=== PATIENT | female | born 1965 | race Caucasian/White ===

== ENCOUNTER 2022-12-31 11:06 | Emergency (ER) | payer OTHER, SELFPAY ==
--- NOTE | 2022-12-31 11:08 | XRR_ITS ---
PROCEDURE INFORMATION: Exam: XR Right Shoulder Exam date and time: 12/31/2022 11:27 AM Age: 57 years old Clinical indication: Injury or trauma; Fall; Fracture, traumatic injury; Closed fracture; Humerus; Right TECHNIQUE: Imaging protocol: Radiologic exam of the right shoulder. Views: 2 or more views. COMPARISON: No relevant prior studies available. FINDINGS: Bones/joints: Anterior inferior dislocation of the humeral head in relation to the glenoid. There are ill-defined fractures through the humeral head and humeral head neck junction. There an oblique fracture of unknown chronicity through the lateral aspect of the clavicle. Soft tissues: There is edema in the soft tissues. XR/XR shoulder RT min 2V* [id number] IMPRESSION: 1. Anterior inferior dislocation of the humeral head in relation to the glenoid. 2. There are ill-defined fractures through the humeral head and humeral head neck junction. 3. There an oblique fracture of unknown chronicity through the lateral aspect of the clavicle.
[2022-12-31 11:15] VITALS: BP 128/75; PULSE 51; RESP 14; TEMP 36.4; O2SAT 98; BMI 39.9
--- NOTE | 2022-12-31 11:51 | W.ED.EXTPRO ---
HPI - Extremity Problem General: Chief complaint: Extremity Injury, Upper Stated complaint: Right Shoulder injury Time Seen by Provider: 12/31/22 11:08 Source: patient Mode of arrival: ambulatory Limitations: no limitations History of Present Illness: 57-year-old female states that she had fell out of the camper just prior to arrival she states is roughly 2 foot fall she landed on her right shoulder. She states that she has had right shoulder pain since then not really able to move her arm. She is holding her arm at her side states that she cannot lift it. She rates her pain a 7 out of 10. Denies any other injuries denies hitting her head denies any neck pain. Associated symptoms: Deny chest pain, fever(s) or rash Review of Systems Const: Denies: fever(s) or chills ENMT: Denies: throat pain or dental pain Card: Denies: chest pain Resp: Denies: dyspnea GI: Denies: abdominal pain, nausea, vomiting or diarrhea Musc: Reports: extremity pain; Denies: neck pain or back pain Skin/Breast: Denies: rash Neuro: Denies: headache(s) Physical Exam Const: COMMON NORMALS: no acute distress and patient oriented x3 HENMT: COMMON NORMALS: normocephalic and atraumatic HEAD & SCALP: normocephalic and atraumatic Eye: COMMON NORMALS: conjunctivae normal CONJUNCTIVA: Yes conjunctivae normal Neck/C-Spine: COMMON NORMALS: full ROM and supple Chest: COMMONS NORMALS: normal inspection of the chest Resp: COMMON NORMALS: normal respiratory effort Cardio: COMMON NORMALS: regular rate RATE: regular rate GI: INSPECTION: Yes normal to inspection Extremity: NARRATIVE EXTREMITY EXAM: Patient has tenderness over right shoulder she is not able to abduct that arm. Neuro: COMMON NORMALS: patient oriented x3 Psych: COMMON NORMALS: mental status grossly normal Skin: COMMON NORMALS: no rashes or lesions noted GENERAL SKIN EXAM: no rashes or lesions noted Procedures Orthopedic Joint Reduction Joint #1: Time Out Performed: Yes Side: right Joint Reduction Location: shoulder Analgesia: procedural sedation Shoulder Technique Used (if applicable): traction/counter-traction Post-reduction neuro exam: intact Post-reduction vascular: intact Post Reduction X-Ray Obtained: Yes Post Reduction X-Ray Results: reduced Splint Applied: Yes Patient Tolerated Procedure: well Procedural Sedation Indication: fracture/dislocation reduction ASA Class: I Time of Last PO Intake: 08:00 IV Propofol dose (mg): 100 Complications: none Course Vital Signs: Vital signs: Vital Signs Temperature 97.5 F L 12/31/22 11:15 Pulse Rate 51 L 12/31/22 12:25 Respiratory Rate 16 12/31/22 12:25 Blood Pressure 132/80 12/31/22 12:25 Pulse Oximetry 100 12/31/22 12:25 Oxygen Delivery Me thod Nasal Cannula 12/31/22 12:25 Oxygen Flow Rate 2 12/31/22 12:25 MDM - Extremity (Nontraumatic) Medical Decision Making Patient presents with a right shoulder dislocation along with humerus fracture. Did reduce the shoulder she feels much improved she has distal pulses sensation intact pre and postreduction we will get her follow-up with orthopedics she is in immobilizer we will prescribe her pain meds. Discharge Plan Discharge Patient Disposition: Home Clinical Impression: Anterior dislocation of right shoulder, Closed right humeral fracture Condition: Stable Prescriptions: New hydrocodone-acetaminophen 5-325 mg tablet 1 tab PO Q6H PRN (Reason: pain) Qty: 14 0RF Discharge Orders: Discharge ED (Routine); Ordered 12/31/22 Ordered By: Pete Gage Discharge Diet: Advance as tolerated Discharge Activity: Resume usual activity Patient Instructions: Arm Fracture in Adults (ED), Shoulder Dislocation (ED), Shoulder Immobilizer (ED), Opioid Safety Coding Level of Care Code ED Communication And Outreach Manager for Faviola Feliciano
[2022-12-31 12:08] VITALS: BP 119/65; PULSE 58; RESP 17; O2SAT 100
[2022-12-31 12:10] VITALS: PULSE 48; RESP 18; O2SAT 100
--- NOTE | 2022-12-31 12:11 | XRR_ITS ---
PROCEDURE INFORMATION: Exam: XR Right Shoulder Exam date and time: 12/31/2022 12:14 PM Age: 57 years old Clinical indication: Injury or trauma; Fall; Other: Post red; Additional info: Post reduction TECHNIQUE: Imaging protocol: Radiologic exam of the right shoulder. Views: 1 view. COMPARISON: CR (CHEST, ) 12/31/2022 11:27 AM FINDINGS: Bones/joints: Post reduction of the right glenohumeral joint. Currently in the right humeral head is in satisfactory alignment with the glenoid. There are ill-defined humeral head fractures. Contour abnormality of the distal clavicle is consistent with fracture of unknown chronicity. There are mild degenerative changes across the acromioclavicular joint. A subacromial spur is present. Soft tissues: There is edema in the soft tissues. XR/XR shoulder RT 1V [id number] IMPRESSION: 1. Post reduction of the right glenohumeral joint. Currently in the right humeral head is in satisfactory alignment with the glenoid. 2. There are ill-defined humeral head fractures. 3. Contour abnormality of the distal clavicle is consistent with fracture of unknown chronicity.
[2022-12-31 12:12] VITALS: BP 162/84; PULSE 53; RESP 21; O2SAT 98
[2022-12-31 12:20] VITALS: PULSE 55; RESP 20; O2SAT 100
[2022-12-31 12:25] VITALS: BP 132/80; PULSE 51; RESP 16; O2SAT 100
--- NOTE | 2022-12-31 12:50 | PC.NURSE ---
pt was consciously sedated by Candace YEN with 10ml of propofol for a right shoulder dislocation reset. Repiratory, MD and RN were also in room. pt was being monitored during procedure with cardiac leads and bp cuff. vitals were charted and procedure was charted. pt was recovered by estevan SAGE for 20 minutes following procedure and was cleared by for dc.
--- NOTE | 2022-12-31 12:59 | PC.NURSE ---
shoulder immobilizer was placed after procedure ended and was secured following the confirmation XR.
--- NOTE | 2023-01-01 08:39 | DCPLANNER ---
Addendum entered by Angelita Martins 01/04/23 13:29: manager area received the following message from the ortho clinic regarding follow up appointment: spoke to patient - she said [place] is [place] [employer] [place]. She asked if she could wait until next week when she was home and could follow up then. I spoke to dr reece and his nurses. They said she would be fine to wait and if she had any issues she could go to urgent care or er again. She did ask if case management from ed could reach out to her to help her set up an appt near her hometown for an ortho referral. manager area called and spoke with patient, she stated that she goes to [facility] for all of her health care needs. manager area called [facility] at [phone] and faxed patients information to the clinic at [phone]. A follow up appointment was scheduled for patient for Sunday, January 17, 2023 at 2:40 with . Patient is aware of appointment. Original Note: manager area had message to schedule a follow up appointment for patient with ortho. manager area sent patients information to the front office staff at [facility]. Patients information will be printed and reviewed. Clinic will call patient with appointment information.
--- NOTE | 2023-01-01 11:58 | DCPLANNER ---
manager media was triggered to call patient due to no primary care physician - patient does not live in the area.
== END 2022-12-31 13:00 | disposition home or self-care (01) ==
PROVIDERS: Emergency Provider Emergency Medicine
DX: S42.294A Other nondisplaced fracture of upper end of right humerus, initial encounter for closed fracture (principal); S42.034A Nondisplaced fracture of lateral end of right clavicle, initial encounter for closed fracture; S43.084A Other dislocation of right shoulder joint, initial encounter; W17.89XA Other fall from one level to another, initial encounter
CPT/HCPCS: 23650; 73020; 73030; 99285